=== PATIENT | male | born 1985 | race Caucasian/White ===

== ENCOUNTER 2025-03-26 17:24 | Emergency (ER) | payer BC | END 2025-03-26 21:03 | disposition home or self-care (01) | LOC: JP.ED 17:24 | DX: S59.902A Unspecified injury of left elbow, initial encounter (principal); W01.0XXA Fall on same level from slipping, tripping and stumbling without subsequent striking against object, initial encounter; Y93.02 Activity, running | CPT/HCPCS: 73080; 73200; 76377; 99284; A9270; 99283 ==